=== PATIENT | female | born 1940 | race Caucasian/White ===

== ENCOUNTER 2020-03-06 14:00 | Inpatient (IN) | payer MEDICARE, OTHER, SELFPAY ==
[2020-03-06] VITALS (8 sets, daily range): BP systolic 57–102; BP diastolic 27–49; PULSE 55–73; RESP 15–22; TEMP 36–36.4; O2SAT 96–99; BMI 29.2
--- NOTE | ~2020-03-06 | CT_ITS ---
EXAMINATION: CT brain wo con DATE: 03/06/2020 16:04 INDICATION: Confusion. Altered mental status. TECHNIQUE: Computed tomography (CT) of the head was performed without intravenous contrast. The mA wa s adjusted according to patient size. Iterative reconstruction technique was employed. The dose-lengt h product was 605.33 mGy-cm. COMPARISON: None FINDINGS: There is an infarct involving posterior limb left internal capsule. There is no intracrania l hemorrhage or abnormal mass lesion. There are scattered areas of low attenuation in the cerebral wh ite matter. The ventricles are normal in size. The orbits are normal. There is mild mucosal thickenin g in the paranasal sinuses. The mastoid air cells are normal. IMPRESSION: 1. Age-indeterminate infarct in posterior limb left internal capsule. 2. Mild nonspecific cerebral white matter disease, which likely represents chronic small vessel ische carlos disease. Reviewed, dictated and finalized at location A. [employer] IMPRESSION: 1. Age-indeterminate infarct in posterior limb left internal capsule. 2. Mild nonspecific cerebral white matter disease, which likely represents cutter in phil small vessel ischemic disease.
--- NOTE | ~2020-03-06 | XR_ITS ---
EXAMINATION: XR chest 1V portable DATE: 03/06/2020 16:08 INDICATION: Transient alteration of awareness. TECHNIQUE: A single frontal view of the chest was obtained. COMPARISON: None. FINDINGS: The patient is rotated to her right. A calcified left lung nodule is consistent with old gr anulomatous disease. No pleural effusion or pneumothorax. The heart size is normal. IMPRESSION: 1. No acute cardiopulmonary disease. Reviewed, dictated and finalized at location A. FARMER
--- NOTE | 2020-03-06 14:12 | ED.AMS ---
HPI - Altered Mental Status General Chief Complaint: Altered Mental Status Stated Complaint: low bp Source: EMS Mode of arrival: EMS Limitations: no limitations History of Present Illness HPI narrative: Patient is an 79-year-old female with a history of CVA who presents from [facility] for evaluation of altered mental status and hypotension. Patient is unable to provide any history as she is not verbally responsive. EMS provides history that the patient was noted to have increased lethargy, hypoxia, hypotension this morning. Patient had signed a DNR form this morning to be comfort care only, however given the new status change in the patient, family wanted her evaluated in the emergency department. Patient was noted to be hypotensive in route by EMS, responsive only to painful stimuli, no focal deficits on exam. Additional history cannot be obtained from the patient as she is altered, eyes open on bed, not verbally responsive. Pt just was hospitalized at [facility] per family. Related Data Allergies Allergy/AdvReac Type Severity Reaction Status Date / Time iodine Allergy Unknown Verified 03/06/20 16:04 latex Allergy Unknown Verified 03/06/20 16:04 Review of Systems Review of Systems: ROS unobtainable: Yes unobtainable due to mental status PMFSH Past Medical History Medical History CVA (cerebral vascular accident) Social History Social History (Updated 03/06/20 @ 14:27 by Deedee Mann MD) Smoking status: Never smoker Alcohol intake: never Substance use: never Gender identity (if verbalized by the patient): Female Exam Narrative: Exam Narrative: GENERAL: Eyes open, not responsive to verbal stimuli HEAD: Normocephalic, atraumatic. EYES: 3+ PERRLA ENT: Nares clear, no rhinorrhea or epistaxis. Mucous membranes dry NECK: Supple. CHEST: No vini respiratory distress, coarse respirations bilaterally, no tachypnea HEART: Regular rate, sinus rhythm ABDOMEN:Non distended, umbilical hernia present, no grimace with palpation, ecchymoses overlying abdomen : Chronic indwelling maya EXTREMITIES: No spontaneous movement SKIN: Scaling dry skin NEURO: Limited spontaneous movement, patient does spontaneously move the left upper extremity, does not follow any commands, no clonus Course Vital Signs Vital signs: Vital Signs Temperature 36.0 C L 03/06/20 14:07 Pulse Rate 73 03/06/20 14:07 Respiratory Rate 15 03/06/20 14:07 Blood Pressure 57/47 L 03/06/20 14:07 Pulse Oximetry 99 03/06/20 14:07 Temperature 36.0 C L 03/06/20 14:07 Pulse Rate 65 03/06/20 16:33 Respiratory Rate 18 03/06/20 16:33 Blood Pressure 77/37 L 03/06/20 16:33 Pulse Oximetry 96 03/06/20 16:33 MDM - Altered Mental Status MDM Narrative Medical decision making narrative: Patient presented for evaluation of altered mental status, hypotension from care facility. At the time of assessment, patient is hypotensive, no tachycardia, no severe hypothermia. She is on a nonrebreather, we are able to wean this down to nasal cannula oxygen. Patient with abnormal ST segments on her EKG, somewhat concerning for ischemic changes. Patient with substantial neurological deficits on exam which may be secondary to the possible sepsis versus CVA. IV access was obtained, patient was given a 30 mL/kg fluid bolus and started on broad-spectrum antibiotics. I did speak with the patient's power of employment attorney over the phone who is her daughter, who states that they would not want any intubation, CPR, or extensive measures otherwise. They are comfortable with IV fluids and antibiotics as well as supportive care only. CT with evidence of CVA, however given patient last seen normal yesterday and other abnormalities found on exam and lab testing, pt not a good TPA candidate. Urinalysis is concerning for UTI, especially given indwelling Maya. Chest x-ray is concerning for bilater
--- NOTE | 2020-03-06 14:17 | ECG_ITS ---
Measurements Intervals Grulla Rate: 69 P: 52 OR: 137 QRS: 24 QRSD: 98 T: 201 QT: 453 QTc: 487 Interpretive Statements SINUS RHYTHM ST-T WAVE ABNORMALITY IN ANTEROLAT/HIGH LAT LEADS- CONSIDER ISCHEMIA BASELINE ARTIFACT- V1-V6 ABNORMAL ECG Electronically Signed On 03-06-2020 17:56:43 CAR WASHER by Manny Chaudhary D.O.
[2020-03-06] MEDS: SODIUM CHLORIDE 0.9% IV 1,000 ML 999 ML IV CONT ×2 (14:46→16:31)
[2020-03-06] MEDS: ONDANSETRON INJ 4 MG/2 ML VIAL IV PUSH (14:47)
[2020-03-06 14:50] LABS: Basophils Percent Auto 0.4 % (0.2-1.2); Hematocrit 47.2 % (37.0-47.0); Hemoglobin 15.8 g/dL (12.0-15.0); Immature Granulocyte Absolute 0.03 K/mm3 (0.00-0.031); Immature Granulocyte Percent A 0.4 % (0-0.5); Lymphocytes Percent Auto 10.8 % (18.3-44.2); Mean Corpuscular HGB Conc 33.5 g/dl (32-36); Mean Corpuscular Hemoglobin 32.5 pg (26-34); Mean Corpuscular Volume 97.1 fl (80-100); Mean Platelet Volume 11.8 fl (7.4-10.4); Monocytes Absolute Auto 0.7 K/mm3 (0.1-0.6); Monocytes Percent Auto 8.8 % (2.6-8.5); Neutrophils Absolute Auto 6.7 K/mm3 (1.3-6.7); Neutrophils Percent Auto 79.6 % (45.5-73.1); Platelet Count Result 242 k/mm3 (150-375); Red Blood Count 4.86 M/mm3 (4.2-5.4); Red Cell Distribution Width 14.6 % (11.5-14.5); White Blood Count 8.3 K/mm3 (4.5-10.0)
[2020-03-06 15:02] LABS: Glucose Point of Care 179 (65-105)
[2020-03-06 15:31] LABS: Alveolar/Arterial O2 Gradient 79.1 mmHg; Base Excess ABG -7.9 mEq/l (+/-2.0); Fractional Inspired Oxygen 28 %; Oxygen Content ABG 20.1 %vol (16.0-22.0); Oxygen Saturation ABG 97.6 % (95.0-100.0); Oxyhemoglobin 96.4 % THb (90.0-100.0); PO2 ABG 94.8 mmHg (80.0-100.0); PO2 FiO2 Ratio Arterial Blood 3.39 %; Total Hemoglobin 14.8 g/dL (12.0-18.0); pH ABG 7.427 (7.350-7.450)
[2020-03-06 15:32] LABS: Device NASAL CANNULA; PCO2 ABG 21.8 mmHg (35.0-45.0); Site Drawn LEFT BRACHIAL
[2020-03-06 15:44] LABS: Add Urine Microscopic? YES; Amorphous Sediment Urine Few; Appearance Urine Turbid (Clear); Bacteria Urine Trace /hpf; Bilirubin Urine Negative (Negative); Blood Urine 2+ (Negative); Budding Yeast Urine Present /hpf; Color Urine Yellow (Yellow); Glucose Urine UA Negative (Negative); Ketones Urine 1+ mg/dL (Negative); Leukocyte Esterase Ur 3+ LEU/UL (Negative); Mucus Urine Few /lpf; Nitrate Urine Negative (Negative); Protein Urine 1+ mg/dL (Negative); RBC Urine 51-75 /hpf (0-2); Specific Grav Ur 1.019 (1.001-1.035); Squamous Epithelial Cell Urine Occasional /hpf (Few); Urobilinogen Urine Negative mg/dL (<2.0); WBC Clumps Urine Present /HPF; WBC Urine >75 /hpf
[2020-03-06 15:46] LABS: INR 1.3; Prothrombin Time 16.4 Seconds (11.1-14.7)
[2020-03-06 15:47] LABS: Partial Thromboplastin Time 39.8 SECONDS (22.3-36.8)
[2020-03-06 15:48] LABS: Ammonia < 9 umol/L (9-30)
[2020-03-06 15:53] LABS: Alanine Aminotransferase 69 U/L (4-35); Albumin Level 3.7 g/dL (3.5-5.1); Alkaline Phosphatase 151 U/L (38-126); Anion Gap 15 mmol/L (8-16); Aspartate Amino Transferase 101 U/L (14-36); Bilirubin,Total 1.5 mg/dL (0.2-1.3); Blood Urea Nitrogen 48 mg/dL (7-17); Calcium 9.7 mg/dL (8.4-10.2); Carbon Dioxide 20 mmol/L (22-30); Chloride 109 mmol/L (98-107); Creatine Kinase 80 U/L (30-135); Estimated CRCL calculation 34 ml/min; Estimated Glomerular Filt Rate 33; Glucose 168 mg/dL (65-105); Potassium 4.5 mmol/L (3.4-5.0); Sodium 144 mmol/L (137-145)
[2020-03-06 15:57] LABS: CRP 1.5 mg/dL (<1.0)
[2020-03-06 16:07] LABS: Troponin I 0.261 ng/mL (0.000-0.034)
--- NOTE | 2020-03-06 17:02 | PM.IMHP ---
H&P: HPI History of Present Illness Date/Time: 03/06/20 17:02 Chief complaint: low bp Narrative: Suad Hyde is a 79 year old female from [facility] with past medical history CVA, chronic Gordillo presents to ED with altered mental status. Patient cannot provide any history underlying CVA/dementia/current medical status. Family does not want any aggressive measures, patient is DNR/DNI, no central line or pressors, no tube feeds. Family would only like IV antibiotics and fluids. Family was not ready for hospice. Discussion with family about code status was had by ER physician. Patient had been presented from [facility] with the changes status, will discuss in morning with [facility] staff to find her baseline. In the ED: Patient was found to have UTI, hypertension systolic 70s, WBC 8, Hemoglobin at 15.8 Creatinine 1.5. Troponin 0.261, CRP 1.5, TSH 6.25. urine is turbid with elevated white blood cells, positive leuk esterase. head CT showed indeterminate infarct of posterior limb of left internal capsule and chronic small-vessel disease. Chest x-ray negative. Patient admitted for severe sepsis from UTI. Review of Systems Review of Systems: ROS unobtainable: Yes unobtainable due to medical condition and unobtainable due to mental status PMFSH Past Medical History Medical History CVA (cerebral vascular accident) Social History Social History (Updated 03/06/20 @ 17:55 by Alicia Park DO) Social History: Resident of [facility] Smoking status: Never smoker Alcohol intake: never Substance use: never Living arrangements: [facility] Gender identity (if verbalized by the patient): Female Meds Home Medications and Allergies Allergies Allergy/AdvReac Type Severity Reaction Status Date / Time iodine Allergy Unknown Verified 03/06/20 16:04 latex Allergy Unknown Verified 03/06/20 16:04 Vital Signs Vital Signs - 24 hr 03/06/20 14:07 03/06/20 15:00 03/06/20 16:33 Temperature 36.0 C L Pulse Rate 73 66 65 Respiratory Rate 15 20 18 Blood Pressure 57/47 L 69/42 L 77/37 L Pulse Oximetry 99 96 96 Exam Narrative: Exam Narrative: - GENERAL: Lethargic ill-appearing woman, nonlabored respirations, not following commands - EYES: Anicteric. - HENT: Very dry oral mucosa. - LUNGS: Clear to auscultation bilaterally. - CARDIOVASCULAR: Regular rate and rhythm. No murmur. No JVD. - ABDOMEN: Soft, no guarding, obese. No palpable masses. - : Gordillo catheter - EXTREMITIES: No edema. Peripheral pulses 2+. Non-tender. - NEUROLOGIC: No obvious focal deficit. - PSYCHIATRIC: Awake, not making eye contact, unable to assess orientation. - SKIN: No rashes or lesions. Warm. H&P: Results Labs Labs: Short CBC 03/06/20 Range/Units 14:42 WBC 8.3 (4.5-10.0) K/mm3 Hgb 15.8 H (12.0-15.0) g/dL Hct 47.2 H (37.0-47.0) % Plt Count 242 (150-375) k/mm3 BMP 03/06/20 15:12 Sodium 144 Potassium 4.5 Chloride 109 H Carbon Dioxide 20 L BUN 48 H Creatinine 1.50 H Glucose 168 H Calcium 9.7 Cardiac Enzymes 03/06/20 Range/Units 15:12 Total Creatine Kinase 80 (30-135) U/L Troponin I 0.261 H* (0.000-0.034) ng/mL Liver Function 03/06/20 Range/Units 15:12 Total Bilirubin 1.5 H (0.2-1.3) mg/dL AST 101 H (14-36) U/L ALT 69 H (4-35) U/L Alkaline Phosphatase 151 H (38-126) U/L Albumin 3.7 (3.5-5.1) g/dL Urine 03/06/20 Range/Units 15:23 Urine Color Yellow (Yellow) Urine Appearance Turbid H (Clear) Urine pH 5.0 (5.0-9.0) Ur Specific [place] 1.019 (1.001-1.035) Urine Protein 1+ H (Negative) mg/dL Urine Glucose (UA) Negative (Negative) mg/dL Assessment and Plan Assessment and plan (1) Altered mental status: Qualifiers: Altered mental status type: delirium Qualified Code(s): R41.0 - Disorientation, unspecified Code(s):
[2020-03-06 17:26] LABS: NT Pro B Type Natriuretic Pept 22400 PG/ML (5-100)
--- NOTE | 2020-03-06 20:12 | PC.NURSE ---
This patient, Suad Hyde, was admitted to [facility] Surg Room 323-01. Patient/family oriented to hospital policies and general routines including ID bracelet, bed and alarms, visiting hours, pain management, procedures, bathroom and other care routines, personal items, smoking policy, room service/diet, and visiting hours. Information on how to activate the Rapid Response Team has been discussed. Patient/Family are encouraged to report perceived risks to care and to ask questions if they do not understand what they are told or what they should do.
[2020-03-06] MEDS: SODIUM CHLORIDE 0.9% IV 1,000 ML 125 ML IV CONT (20:40)
[2020-03-06 20:56] LABS: Glucose 210 mg/dL (65-105)
[2020-03-06 20:57] LABS: Lactic Acid Reflex 1.6 mmol/L (0.7-2.1)
[2020-03-06] MEDS: SODIUM CHLORIDE 0.9% IV 500 ML 999 ML IV CONT (21:53)
[2020-03-07] VITALS (8 sets, daily range): BP systolic 93–132; BP diastolic 28–59; PULSE 58–69; RESP 14–20; TEMP 36–36.8; O2SAT 96–100; BMI 29.2
[2020-03-07] MEDS: SODIUM CHLORIDE 0.9% IV 1,000 ML 125 ML IV CONT ×2 (00:54→09:08)
[2020-03-07 01:18] LABS: SARS-CoV-2 RNA PCR Positive
[2020-03-07] MEDS: ENOXAPARIN 40 MG/0.4 ML SYRINGE SUB-Q (08:54)
[2020-03-07 09:08] LABS: Basophils Percent Auto 0.1 % (0.2-1.2); Hematocrit 35.3 % (37.0-47.0); Hemoglobin 11.6 g/dL (12.0-15.0); Immature Granulocyte Absolute 0.07 K/mm3 (0.00-0.031); Immature Granulocyte Percent A 0.5 % (0-0.5); Lymphocytes Absolute Auto 0.92 K/mm3 (0.9-3.2); Lymphocytes Percent Auto 6.1 % (18.3-44.2); Mean Corpuscular HGB Conc 32.9 g/dl (32-36); Mean Corpuscular Volume 97.5 fl (80-100); Mean Platelet Volume 11.5 fl (7.4-10.4); Monocytes Percent Auto 6.5 % (2.6-8.5); Neutrophils Absolute Auto 13.2 K/mm3 (1.3-6.7); Neutrophils Percent Auto 86.8 % (45.5-73.1); Platelet Count Result 144 k/mm3 (150-375); Red Blood Count 3.62 M/mm3 (4.2-5.4); Red Cell Distribution Width 14.7 % (11.5-14.5); White Blood Count 15.1 K/mm3 (4.5-10.0)
[2020-03-07 10:17] LABS: Alanine Aminotransferase 56 U/L (4-35); Albumin Level 2.8 g/dL (3.5-5.1); Alkaline Phosphatase 102 U/L (38-126); Anion Gap 11 mmol/L (8-16); Aspartate Amino Transferase 86 U/L (14-36); Bilirubin,Total 0.7 mg/dL (0.2-1.3); Blood Urea Nitrogen 55 mg/dL (7-17); Carbon Dioxide 16 mmol/L (22-30); Chloride 119 mmol/L (98-107); Estimated CRCL calculation 27 ml/min; Estimated Glomerular Filt Rate 33; Glucose 107 mg/dL (65-105); Potassium 2.8 mmol/L (3.4-5.0); Sodium 146 mmol/L (137-145)
--- NOTE | 2020-03-07 17:51 | PM.IMPN ---
Progress Note: A&P Assessment and Plan (1) Altered mental status: Qualifiers: Altered mental status type: delirium Qualified Code(s): R41.0 - Disorientation, unspecified Code(s): R41.82 - Altered mental status, unspecified Status: Acute (2) Delirium due to general medical condition: Code(s): F05 - Delirium due to known physiological condition Status: Acute (3) Acute dehydration: Code(s): E86.0 - Dehydration Status: Acute (4) Acute UTI: Code(s): N39.0 - Urinary tract infection, site not specified Status: Acute (5) Severe sepsis: Code(s): A41.9 - Sepsis, unspecified organism; R65.20 - Severe sepsis without septic shock Status: Acute (6) Elevated troponin: Code(s): R77.8 - Other specified abnormalities of plasma proteins Status: Acute (7) Gram-positive cocci bacteremia: Code(s): R78.81 - Bacteremia Status: Acute (8) COVID-19: Code(s): U07.1 - COVID-19 Status: Acute Additional Plan # severe sepsis secondary to urinary tract infection # acute metabolic encephalopathy # COVID-19 diagnosis 03/06/2020 # gram-positive cocci blood cultures -UA consistent with UTI with elevated WBC, positive leuk Estrace -likely infectious encephalopathy secondary to UTI, less likely the age indeterminate capsular infarct with her presentation -Antibiotics: Vanc for gram-positive cocci blood culture which may be contaminant however will treat and repeat blood cultures, cefepime for UTI and is from [facility], pending urinary cultures may be able to deescalate -COVID-19 positive however no respiratory issues, only on 1 L oxygen, holding off on COVID-19 treatment plan, supportive care -continue IV fluid resuscitation normal saline 125 cc/hour considering she is NPO and was very septic on admission -Zofran for nausea -blood cultures pending, lactic acid is pending -rectal Tylenol p.r.n. for fever # elevated troponin # elevated creatinine -secondary to sepsis, no need to trend, family also does not want aggressive measures -unknown baseline creatinine function, likely SUKHJINDER secondary to sepsis # chronic conditions -holding home meds well acutely ill, treating UTI -hypertension: Holding lisinopril, carvedilol -CAD: Holding clopidogrel, aspirin, statin while NPO -anxiety/depression: Holding fluoxetine -holding gabapentin, considering her somnolence this may need to be discontinued altogether -chronic hypokalemia on potassium supplement, will trend BMP Diet: NPO while altered DVT prophylaxis: Lovenox Code status: No aggressive measures are to be taking, no central line, no pressors, DNI/DNR Disposition: Inpatient medical floor for IV fluids and IV antibiotics, prognosis guarded, discussed with Dorinda CONNER, discussed with PCP Subjective Date/time seen: 03/07/20 17:51 Patient examined. She is less comatose and more responsive, incomprehensible speech may be from CVA versus sepsis. Blood cultures grew Gram-positive cocci, continue vancomycin however this may be contaminant. She is COVID-19 positive. She has likely UTI, will continue cefepime. I discussed case with primary care provider Dr. Thurston who states he has been working with family to go down the route of hospice considering her failure to thrive. I updated daughter Dorinda who does not want any aggressive measures, no central line, no pressors, no intubation, DNR. If patient further deteriorates, we may need to have hospice conversation again. Patient is quite septic, NPO. Unable to provide review of systems. Review of Systems Review of Systems: ROS unobtainable: Yes unobtainable due to medical condition and unobtainable due to mental status Exam Narrative: Exam Narrative: - GENERAL: Lethargic ill-appearing woman, nonlabored respirations, not following commands, incoherent speech - EYES: Anicteric. - HENT: Very dry oral mucosa. - LUNGS: Clear to auscultation bilaterally.
[2020-03-08] MEDS: SODIUM CHLORIDE 0.9% IV 1,000 ML 125 ML IV CONT ×2 (00:30→18:16)
[2020-03-08 01:45] VITALS: BP 141/50; PULSE 67; RESP 20; TEMP 36.8; O2SAT 95
[2020-03-08 05:00] VITALS: BP 137/57; PULSE 85; RESP 16; TEMP 37; O2SAT 93
[2020-03-08 08:00] VITALS: BP 131/56; PULSE 64; RESP 20; TEMP 36.8; O2SAT 100
[2020-03-08 09:05] VITALS: BMI 11.0
[2020-03-08 09:13] LABS: Hematocrit 32.3 % (37.0-47.0); Hemoglobin 10.5 g/dL (12.0-15.0); Mean Corpuscular HGB Conc 32.5 g/dl (32-36); Mean Corpuscular Hemoglobin 32.7 pg (26-34); Mean Corpuscular Volume 100.6 fl (80-100); Mean Platelet Volume 12.1 fl (7.4-10.4); Platelet Count Result 111 k/mm3 (150-375); Red Blood Count 3.21 M/mm3 (4.2-5.4); White Blood Count 10.8 K/mm3 (4.5-10.0)
[2020-03-08] MEDS: ENOXAPARIN 40 MG/0.4 ML SYRINGE SUB-Q (09:21)
[2020-03-08 09:25] LABS: Anion Gap 6 mmol/L (8-16); Blood Urea Nitrogen 42 mg/dL (7-17); Calcium 8.1 mg/dL (8.4-10.2); Carbon Dioxide 20 mmol/L (22-30); Chloride 118 mmol/L (98-107); Estimated CRCL calculation 39 ml/min; Estimated Glomerular Filt Rate 53; Glucose 128 mg/dL (65-105); Magnesium 1.9 mg/dL (1.6-2.3); Potassium 2.9 mmol/L (3.4-5.0); Sodium 144 mmol/L (137-145)
[2020-03-08 12:00] VITALS: BP 137/53; PULSE 62; RESP 20; TEMP 36.9; O2SAT 100
--- NOTE | 2020-03-08 12:09 | PM.IMPN ---
Progress Note: A&P Assessment and Plan (1) Altered mental status: Qualifiers: Altered mental status type: delirium Qualified Code(s): R41.0 - Disorientation, unspecified Code(s): R41.82 - Altered mental status, unspecified Status: Acute (2) Delirium due to general medical condition: Code(s): F05 - Delirium due to known physiological condition Status: Acute (3) Acute dehydration: Code(s): E86.0 - Dehydration Status: Acute (4) Acute UTI: Code(s): N39.0 - Urinary tract infection, site not specified Status: Acute (5) Severe sepsis: Code(s): A41.9 - Sepsis, unspecified organism; R65.20 - Severe sepsis without septic shock Status: Acute (6) Elevated troponin: Code(s): R77.8 - Other specified abnormalities of plasma proteins Status: Acute (7) Gram-positive cocci bacteremia: Code(s): R78.81 - Bacteremia Status: Acute (8) COVID-19: Code(s): U07.1 - COVID-19 Status: Acute Additional Plan # severe sepsis secondary to urinary tract infection # acute metabolic encephalopathy # COVID-19 diagnosis 03/06/2020 # gram-positive cocci blood cultures -UA consistent with UTI with elevated WBC, positive leuk Estrace -likely infectious encephalopathy secondary to UTI, less likely the age indeterminate capsular infarct with her presentation -Antibiotics: Vanc for gram-positive cocci blood culture which may be contaminant however will treat and repeat blood cultures until cultures and sensitivities return, cefepime for UTI and is from [facility], pending urinary cultures may be able to deescalate -COVID-19 positive however no respiratory issues, only on 1 L oxygen, holding off on COVID-19 treatment plan, supportive care -continue IV fluid resuscitation normal saline 125 cc/hour for dehydration -Zofran for nausea -rectal Tylenol p.r.n. for fever # elevated troponin # elevated creatinine -secondary to sepsis, no need to trend, family also does not want aggressive measures -unknown baseline creatinine function, likely SUKHJINDER secondary to sepsis # chronic conditions -will restart home meds -hypertension: Holding lisinopril, carvedilol, will watch blood pressure before restarting -CAD: Restarting clopidogrel, aspirin, statin -anxiety/depression: Restarting fluoxetine -holding gabapentin, considering her somnolence this may need to be discontinued altogether -chronic hypokalemia on potassium supplement, will trend BMP Diet: Advance to mechanical soft with thin liquids DVT prophylaxis: Lovenox Code status: No aggressive measures are to be taking, no central line, no pressors, DNI/DNR Disposition: Inpatient medical floor for IV fluids and IV antibiotics, prognosis guarded, updated gagandeep Seth 03/08/2020 Subjective Date/time seen: 03/08/20 12:09 Patient examined. She has dysarthric speech from her previous stroke. Otherwise she is clinically improving able to communicate with sentences. Patient previously was on mechanical soft diet with thin liquids, will continue that diet and if she is unable to tolerate then will get full speech therapy evaluation. I discussed and updated with daughter Dorinda. There was no talk of hospice ever before, patient had been declining in and out of hospitals at [place] twice and now here in [facility] over the past month, family is not ready for hospice. Continuing treatment for UTI, following blood cultures from yesterday, supportive care for COVID-19. Patient denies fever, chills, nausea, vomiting, diarrhea, chest pain, dyspnea. Review of Systems Review of Systems: All systems reviewed & are unremarkable except as noted in HPI and below Exam Narrative: Exam Narrative: - GENERAL: Ill-appearing woman, respirations nonlabored, improving, dysarthric speech from previous stroke, conversational - EYES: Anicteric. - HENT: Very dry oral mucosa. - LUNGS: Clear to auscultation bilaterally. - CARDIOVASC
--- NOTE | 2020-03-08 12:34 | PCDIET ---
Nutrition Follow-Up Complete: Nutrition Diagnosis: Inadequate oral intake related to AMS/septic shock as evidenced by NPO. Nutrition Goal: Meet estimated nutritional needs. Goal in progress. Diet has been advanced to minced and moist, as patient has been reportedly more alert. Recommend Ensure Enlive (350kcal, 20g protein) BID to supplement anticipated poor intakes. Also recommend K+ replacement as medically appropriate. Last recorded weight is 77.4 kg. Recommend obtaining new weight. Bowel Motility: Last documented BM on 03/07/20 x 1. Labs Reviewed: Hgb (10.5), Hct (32.3), Glu (128), BUN (42), K (2.9), Cl (118), Yuli Ca (9.06), Alb (2.8) Meds Noted: Cefepime, NS at 125mL/hr, Vancomycin Additional Notes: Abdomen and groin macerated. Buttocks reddened. Will continue to monitor with same goal. Nutrition Monitoring and Evaluation: Will monitor every 5 days.
[2020-03-08 16:00] VITALS: BP 144/57; PULSE 62; RESP 18; TEMP 36.9; O2SAT 100
[2020-03-08 20:00] VITALS: BP 132/52; PULSE 88; RESP 20; TEMP 36.8; O2SAT 97
[2020-03-08] MEDS: ATORVASTATIN 40 MG TABLET PO (22:39)
[2020-03-09] VITALS (8 sets, daily range): BP systolic 139–170; BP diastolic 45–78; PULSE 54–68; RESP 18–20; TEMP 36.5–37.2; O2SAT 91–100
[2020-03-09 07:01] LABS: Hematocrit 32.1 % (37.0-47.0); Hemoglobin 10.6 g/dL (12.0-15.0); Mean Corpuscular Hemoglobin 32.3 pg (26-34); Mean Corpuscular Volume 97.9 fl (80-100); Mean Platelet Volume 12.1 fl (7.4-10.4); Platelet Count Result 102 k/mm3 (150-375); Red Blood Count 3.28 M/mm3 (4.2-5.4); Red Cell Distribution Width 14.8 % (11.5-14.5); White Blood Count 5.2 K/mm3 (4.5-10.0)
[2020-03-09] MEDS: ASPIRIN 81 MG CHEWABLE TABLET PO (08:56)
[2020-03-09] MEDS: FLUoxetine HCL 20 MG CAPSULE PO (08:56)
[2020-03-09] MEDS: CLOPIDOGREL BISULFATE 75 MG TABLET PO (08:56)
[2020-03-09 09:19] LABS: Anion Gap 4 mmol/L (8-16); Blood Urea Nitrogen 27 mg/dL (7-17); Calcium 8.3 mg/dL (8.4-10.2); Carbon Dioxide 24 mmol/L (22-30); Chloride 118 mmol/L (98-107); Estimated CRCL calculation 48 ml/min; Estimated Glomerular Filt Rate > 60; Glucose 90 mg/dL (65-105); Potassium 2.9 mmol/L (3.4-5.0); Sodium 146 mmol/L (137-145)
[2020-03-09] MEDS: POTASSIUM CHLORIDE 20 MEQ TABLET 40 MEQ PO (12:17)
[2020-03-09] MEDS: ENOXAPARIN 40 MG/0.4 ML SYRINGE SUB-Q (12:19)
--- NOTE | 2020-03-09 14:32 | PM.IMPN ---
Progress Note: A&P Assessment and Plan (1) Altered mental status: Qualifiers: Altered mental status type: delirium Qualified Code(s): R41.0 - Disorientation, unspecified Code(s): R41.82 - Altered mental status, unspecified Status: Acute (2) Delirium due to general medical condition: Code(s): F05 - Delirium due to known physiological condition Status: Acute (3) Acute dehydration: Code(s): E86.0 - Dehydration Status: Acute (4) Acute UTI: Code(s): N39.0 - Urinary tract infection, site not specified Status: Acute (5) Severe sepsis: Code(s): A41.9 - Sepsis, unspecified organism; R65.20 - Severe sepsis without septic shock Status: Acute (6) Elevated troponin: Code(s): R77.8 - Other specified abnormalities of plasma proteins Status: Acute (7) Gram-positive cocci bacteremia: Code(s): R78.81 - Bacteremia Status: Acute (8) COVID-19: Code(s): U07.1 - COVID-19 Status: Acute Additional Plan # Enterococcus bacteremia # COVID-19 diagnosis 03/06/2020 # acute metabolic encephalopathy, resolved back to baseline # severe sepsis, resolved -mentation improved to baseline -urine culture did not grow any bacteria -blood cultures grew Enterococcus sensitive to Rocephin, blood cultures the next day were negative -deescalate antibiotics to Rocephin, stopping vancomycin and cefepime -her encephalopathy was likely secondary to infectious, back to baseline -patient has little interest in p.o. intake, refusing meals, will give Ensure t.i.d. as she is drinking, patient appears to be feeling to thrive in long-term -COVID-19 positive however no respiratory issues, supportive care -decrease IV fluids to 75 cc an hour, patient can take p.o. however she has minimal input -Zofran for nausea -rectal Tylenol p.r.n. for fever # chronic hypokalemia -potassium 2.9, repleting with p.o. and IV -restart her home daily supplement # elevated troponin # elevated creatinine -secondary to sepsis, no need to trend, family also does not want aggressive measures -unknown baseline creatinine function, likely SUKHJINDER secondary to sepsis, likely resolved since creatinine normal # chronic conditions -will restarting home meds -hypertension: Restarting lisinopril, carvedilol, will watch blood pressure before restarting -CAD: Continue clopidogrel, aspirin, statin -anxiety/depression: Continue fluoxetine -holding gabapentin, considering her somnolence this may need to be discontinued altogether Diet: mechanical soft with thin liquids, adding Ensure t.i.d. 03/09/2020 because of poor p.o. intake DVT prophylaxis: Lovenox Code status: No aggressive measures are to be taking, no central line, no pressors, DNI/DNR Disposition: Inpatient medical floor for IV fluids and IV antibiotics, prognosis guarded especially if unmotivated to eat, daughter is Dorinda Subjective Date/time seen: 03/09/20 14:32 Patient examined. Blood cultures negative, initial blood cultures grew Enterococcus which is sensitive to Rocephin. Will deescalate antibiotics stopping vancomycin and cefepime. Patient is clinically improved. She is much more awake and can tolerate p.o. today which will be important considering her electrolyte abnormalities. Restarting home potassium supplement. Blood pressure elevating, restarting home antihypertensives. Adding Ensure t.i.d. with poor p.o. intake. Patient denies fever, chills, nausea, vomiting, diarrhea. Review of Systems Review of Systems: All systems reviewed & are unremarkable except as noted in HPI and below Exam Narrative: Exam Narrative: - GENERAL: Pleasant woman in no acute distress, dysarthric speech from previous stroke, conversational - EYES: Anicteric. - HENT: Dry oral mucosa - LUNGS: Clear to auscultation bilaterally. - CARDIOVASCULAR: Regular rate and rhythm. No murmur. No JVD. - ABDOMEN: Soft, no guarding, obese. No palpable masses. - G
[2020-03-09] MEDS: SODIUM CHLORIDE 0.9% IV 1,000 ML 75 ML IV CONT (17:14)
[2020-03-09 19:13] LABS: Vancomycin Trough 13.5 ug/mL (10.0-20.0)
[2020-03-09] MEDS: carvediloL 12.5 MG TABLET PO (20:47)
[2020-03-09] MEDS: ATORVASTATIN 40 MG TABLET PO (20:48)
[2020-03-10] VITALS (7 sets, daily range): BP systolic 137–184; BP diastolic 64–95; PULSE 53–58; RESP 12–20; TEMP 36.1–37.1; O2SAT 97–100; BMI 11.0
[2020-03-10] MEDS: SODIUM CHLORIDE 0.9% IV 1,000 ML 75 ML IV CONT (05:12)
[2020-03-10 07:52] LABS: Hemoglobin 10.8 g/dL (12.0-15.0); Mean Corpuscular HGB Conc 33.8 g/dl (32-36); Mean Corpuscular Hemoglobin 32.7 pg (26-34); Mean Platelet Volume 12.1 fl (7.4-10.4); Platelet Count Result 95 k/mm3 (150-375); Red Cell Distribution Width 15.1 % (11.5-14.5); White Blood Count 3.7 K/mm3 (4.5-10.0)
[2020-03-10] MEDS: CLOPIDOGREL BISULFATE 75 MG TABLET PO (08:50)
[2020-03-10] MEDS: FLUoxetine HCL 20 MG CAPSULE PO (08:50)
[2020-03-10] MEDS: carvediloL 12.5 MG TABLET PO (08:50)
[2020-03-10] MEDS: lisinopriL 20 MG TABLET PO (08:51)
[2020-03-10] MEDS: POTASSIUM CHLORIDE 20 MEQ PACKET (FOR LIQUID) 40 MEQ PO (08:51)
[2020-03-10] MEDS: ASPIRIN 81 MG CHEWABLE TABLET PO (08:53)
--- NOTE | 2020-03-10 12:33 | PCOTNOTE ---
Attempted to see patient this pm, however patient refused stating, No. Upon entering, patient was difficult to arouse. Pt already completed bathing and was assisted up to [facility] prior to entering room. Encouraged patient to participate in upper extremity exercises, however patient did not respond. In attempt to assist with exercises, patient refused stating No. Pt presented with increased fatigue at this time.
[2020-03-10 12:36] LABS: Anion Gap 6 mmol/L (8-16); Blood Urea Nitrogen 21 mg/dL (7-17); Calcium 7.9 mg/dL (8.4-10.2); Carbon Dioxide 16 mmol/L (22-30); Chloride 123 mmol/L (98-107); Estimated CRCL calculation 63 ml/min; Estimated Glomerular Filt Rate > 60; Glucose 89 mg/dL (65-105); Potassium 4.5 mmol/L (3.4-5.0); Sodium 145 mmol/L (137-145)
--- NOTE | 2020-03-10 12:59 | P.CDI_ITS ---
CDI Query Clarification Request - UTI has been documented - urine culture did not grow any bacteria has been documented but UTI remains o n problem list Please clarify if UTI has been ruled in or ruled out.
--- NOTE | 2020-03-10 13:10 | PM.DS ---
DS: Admitting Diagnosis Admitting Diagnosis Admitting Diagnosis: Septic shock, Dehydration, UTI, Delirium DS: Discharge Diagnosis Discharge Diagnosis (1) Enterococcus faecalis infection: Code(s): B95.2 - Enterococcus as the cause of diseases classified elsewhere Status: Acute Assessment and Plan: 1 bottle from 03/06 was positive for Enterococcus faecalis and Enterococcus raffinosus etiology is likely from UTI with chronic indwelling Gordillo, despite negative urine cultures. Other possible sources GI tract. Subsequent blood cultures were negative. This may be contaminant but with the sepsis will treat. Patient wants comfort care supportive measures only with antibiotics and fluids if needed, will give p.o. antibiotics to complete 2 week course. (2) Gram-positive cocci bacteremia: Code(s): R78.81 - Bacteremia Status: Acute Assessment and Plan: See above (3) COVID-19: Code(s): U07.1 - COVID-19 Status: Acute Assessment and Plan: Supportive care, patient is not requiring oxygen (4) Altered mental status: Qualifiers: Altered mental status type: delirium Qualified Code(s): R41.0 - Disorientation, unspecified Code(s): R41.82 - Altered mental status, unspecified Status: Acute Assessment and Plan: Back to baseline, likely infectious encephalopathy underlying etiology (5) Delirium due to general medical condition: Code(s): F05 - Delirium due to known physiological condition Status: Acute Assessment and Plan: Back to baseline mentation. Patient may have failure to thrive with little interest in p.o. intake. (6) Acute dehydration: Code(s): E86.0 - Dehydration Status: Acute Assessment and Plan: Resolved with IV fluids (7) Acute UTI: Code(s): N39.0 - Urinary tract infection, site not specified Status: Acute Assessment and Plan: Likely source of Enterococcus from chronic indwelling Gordillo catheter (8) Severe sepsis: Code(s): A41.9 - Sepsis, unspecified organism; R65.20 - Severe sepsis without septic shock Status: Acute Assessment and Plan: Resolved (9) Elevated troponin: Code(s): R77.8 - Other specified abnormalities of plasma proteins Status: Acute Assessment and Plan: Likely secondary to sepsis DS: Summary Hospital Course Reason for hospitalization: Altered mental status Hospital Course: Patient is an 79-year-old woman from [facility] with past medical history of CVA and chronic Gordillo catheter presenting to the ED with altered mental status, severe sepsis. Patient's PCP at [place] has been introducing family to concept of hospice. Family is reluctant, they do not want any aggressive measures, patient is DNR/DNI, no central line or pressors, no tube feeds. Family only wants IV antibiotics and fluids if needed. At this time family is not ready for hospice. She was found to be bacteremic with Enterococcus in 1/2 bottles on 03/06 and subsequent blood cultures were negative. With her being in severe sepsis she was treated with IV vancomycin and cefepime. After cultures and sensitivity showed pansensitive Enterococcus, she was deescalated to Rocephin. Her leukocytosis resolved, labs normalized, mentation improved. She still has little interest in eating or physical activity care and will need to go to rehab to get back to baseline. Patient will be on Ceftin b.i.d. to complete 2 week antibiotic course. Likely etiology for Enterococcus bacteremia is a chronic Gordillo catheter urinary infection, there is a possibility of a GI source. Patient clinically improving and will go to rehab in [place]. Status at Discharge Functional status at discharge: wheelchair bound Overall status at discharge: patient is progressing back to baseline Time Spent with Patient Time attestation: Total time spent providing and/or coordinating discharge services:35
== END 2020-03-10 23:24 | DRG 698 ==
LOC: ANHED 16:47 → ANH3MEDSUR 18:17
PROVIDERS: Admitting Provider Student in an Organized Health Care Education/Training Program; Emergency Provider Emergency Medicine; PCP Family Medicine; Visit Provider Student in an Organized Health Care Education/Training Program
DX: T83.511A Infection and inflammatory reaction due to indwelling urethral catheter, initial encounter (principal); U07.1 COVID-19; A41.81 Sepsis due to Enterococcus; R65.20 Severe sepsis without septic shock; G93.41 Metabolic encephalopathy; F05 Delirium due to known physiological condition; N39.0 Urinary tract infection, site not specified; F03.90 Unspecified dementia, unspecified severity, without behavioral disturbance, psychotic disturbance, mood disturbance, and anxiety; E87.6 Hypokalemia; E86.0 Dehydration; R77.8 Other specified abnormalities of plasma proteins; R79.89 Other specified abnormal findings of blood chemistry; F41.9 Anxiety disorder, unspecified; F32.9 Major depressive disorder, single episode, unspecified; Z66 Do not resuscitate; Z79.899 Other long term (current) drug therapy; Z86.73 Personal history of transient ischemic attack (TIA), and cerebral infarction without residual deficits
CPT/HCPCS: 36415; 36600; 70450; 71045; 80048; 80053; 80202; 81001; 82140; 82550; 82805; 82947; 83605; 83735; 83880; 84443; 84484; 85025; 85027; 85610; 85730; 86140; 87040; 87077; 87086; 87088; 87186; 87635; 93005; 96361; 96365; 96375; 97110; 97161; 97166; 97530; 99285; A9270; C9803; J0692; J0696; J1650; J2405; J3370; J3480; J7030; J7040; U0003